=== PATIENT | female | born 1995 | race Two or more races ===

== ENCOUNTER 2024-05-05 11:55 | Emergency (ER) | payer BC, MEDICAID, SELFPAY ==
[2024-05-05 11:55] VITALS: BMI 30.6
[2024-05-05 12:51] VITALS: BP 113/80; PULSE 92; RESP 18; TEMP 37.3; O2SAT 97; BMI 28.5
--- NOTE | 2024-05-05 13:04 | EDNOTE_ITS ---
Upper Respiratory Inf. RME/HPI General Chief Complaint: Flu Like Symptoms Stated Complaint: COUGH, CHEST PAIN, BODY ACHE, Time Seen by Provider: 05/05/24 12:28 Arrival date/time: 05/05/24 11:55 RME / HPI RME / HPI Narrative: 28-year-old female patient with no significant medical history except for asthma currently not taking any medication, came in for evaluation regarding flulike symptoms. Been having flulike symptoms for the last 5 days, described as nonproductive cough, sore throat, fever, on and off, severity moderate. Denies any shortness of breath. Patient was seen by PCP and currently taking promethazine and Z-Alex. On her third day of Z-Alex. Patient denies any other complaints Related Data Home Medications ?Medication ?Instructions ?Recorded ?Confirmed vitamins-iron fumarate 27 1 tab PO QDAY 07/02/18 02/19/21 mg iron-folic acid 0.8 mg tablet ( Vitamin) albuterol 90 mcg/actuation aerosol 2 mcg inhalation Q4HR PRN Wheezing 02/03/21 02/19/21 inhaler Previous Rx's ?Medication ?Instructions ?Recorded albuterol sulfate 90 mcg/actuation 90 mcg inhalation Q6H PRN 05/05/24 breath activated powder shortness of breath or wheezing #1 inhaler,sensor (Proair Digihaler) ea oseltamivir 75 mg capsule (Tamiflu) 75 mg PO BID 5 days #10 caps 05/05/24 prednisone 50 mg tablet 50 mg PO QDAY #5 tabs 05/05/24 Allergies Allergy/AdvReac Type Severity Reaction Status Date / Time No Known Allergies Allergy Verified 05/05/24 11:58 Review of Systems Review of Systems Narrative Review of Systems: Review of system reviewed and within normal limits except mentioned in HPI ED Exam Narrative Physical exam: VITAL SIGNS: Reviewed. GENERAL APPEARANCE: Alert and interactive, follows commands, no acute distress, HEAD AND FACE: Non-traumatic. ENT: PERRL, pink conjunctivitis, eyelid no trauma, Mucous membrane moist. NECK: Supple, nontender, no nuchal rigidity. CHEST: No tenderness, no crepitus, no paradoxical movement, no retractions. LUNGS: Clear, well ventilated, symmetric, no rales, no wheezing, no ronchi, no stridor, good breath sounds bilaterally. HEART: Regular rate, regular rhythm, no murmur, no gallops. ABDOMEN: Soft, positive bowel sounds, nondistended, no guarding, nontender, no rebound, no masses, RECTAL: Deferred. GENITAL: Deferred. NEUROLOGICAL: Gross motor function intact sensory function intact, Appropriate for age. MUSCULOSKELETAL: low back nontender, full range of motion. EXTREMITIES: Nontender, full range of motion. SKIN: Color pink, dry, no rash, no lacerations, no abrasions, no contusions. LYMPHATICS: Deferred. Course Quality Measures none Orders Category Date Time Status Bedside COVID-19 Antigen Test NOW Care 05/05/24 13:03 Active Bedside Influenza A&B Antigen Test NOW Care 05/05/24 13:03 Completed XR chest 2V Stat Exams 05/05/24 13:03 Ordered HCG Qualitative,Urine Stat Lab 05/05/24 14:32 Ordered UA, C/S IF [Urinalysis, C/S if Indicated] Stat Lab 05/05/24 14:32 Ordered Ibuprofen Tab [Motrin Tab] Med 05/05/24 13:03 Discontinued 800 mg PO X1 ONE Oseltamivir [Tamiflu] Med 05/05/24 14:42 Discontinued 75 mg PO X1 ONE predniSONE Med 05/05/24 13:03 Discontinued 60 mg PO X1 ONE Vital Signs Vital signs: Vital Signs Temperature 99.2 F 05/05/24 12:51 Pulse Rate 92 05/05/24 12:51 Respiratory Rate 18 05/05/24 12:51 Blood Pressure 113/80 05/05/24 12:51 Pulse Oximetry (%) 97 05/05/24 12:51 Oxygen Delivery Method Room Air 05/05/24 12:51 Upper Respiratory Infection MDM Narrative MDM Narrative:: 28-year-old female patient with no significant medical history except for asthma currently not taking any medication, came in for evaluation regarding flulike symptoms. Been having flulike symptoms for the last 5 days, described as nonproductive cough, sore throat, fever, on and off, severity moderate. Denies any shortness of breath. Patient was seen by PCP and currently taking promethazine and Z-Alex. On her third day of Z-Alex. Patient denies any other complaints Patient tested positive for influenza. The rest of the labs unremarkable. Patient chest x-ray was canceled since patient is not able to give us urine sample and x-ray will not do it until the patient is hCG negative. Patient was given prednisone and Tamiflu with significant improvement of symptoms. Patient data External records reviewed:: None Clinical information provided by:: patient Social determinants that could affect healthcare access:: none Patient has the following chronic illnesses:: History of asthma How is presenting disease/condition affected by chronic disease/condition?: exacerbated by Evaluation data The following diagnostics were reviewed and interpreted by me:: lab results Lab and/or radiology exams considered but not ordered:: None Interpretation Summary: Tested positive for influenza negative for COVID Medications / Prescriptions Medications or Prescriptions considered but not ordered:: None Medication administrations:: Medication Administration History Discontinued Medications Ibuprofen (Ibuprofen Tab 400 Mg Tablet) 800 mg PO X1 ONE Stop: 05/05/24 13:04 Last Admin: 05/05/24 14:04 Dose: 800 mg Documented By: Oseltamivir Phosphate (Oseltamivir 75 Mg Capsule) 75 mg PO X1 ONE Stop: 05/05/24 14:43 Last Admin: 05/05/24 15:47 Dose: 75 mg Documented By: Prednisone (Prednisone 20 Mg Tablet) 60 mg PO X1 ONE Stop: 05/05/24 13:04 Last Admin: 05/05/24 14:05 Dose: 60 mg Documented By: Prednisone Tamiflu and Motrin Consultations Consultation(s) initiated? (list below): No Diagnosis Upper Respiratory Differential Diagnosis: upper respiratory infection, viral infection and influenza Most likely diagnosis given after review of the tests above:: Influenza Admission Indicated Admission indicated?: not indicated Admission Request Was there a request for admission?: No Disposition Plan Disposition Plan: Discharge Discharge Attestation Discharge Attestation: The patient was given an opportunity to ask questions and understood the discharge instructions. Discharge instructions specifically effects, indications for sooner follow up or return to the emergency department, and the expected course of current diagnosis. Patient condition: Stable Discharge Plan Plan Patient Disposition: HOME (Self Care) Disposition Comment: stable Prescriptions/Referrals Prescriptions/Med Rec: New oseltamivir [Tamiflu] 75 mg capsule 75 mg PO BID 5 Days Qty: 10 0RF prednisone 50 mg tablet 50 mg PO QDAY Qty: 5 0RF Proair Digihaler 90 mcg/actuation aero powdr breath act w/sensor 90 mcg inhalation Q6H PRN (Reason: shortness of breath or wheezing) Qty: 1 0RF No Action Vitamin 27 mg iron- 0.8 mg Tablet 1 tab PO QDAY albuterol 90 mcg/actuation Aerosol 2 mcg INHALATION Q4HR PRN (Reason: Wheezing) Patient Comments: 2 puffs every 4 hours as needed for wheezing or shortness of breath Referrals: Jessica Guthrie PA-C [Primary Care Provider] - In 1 week Problem List Clinical Impression: Influenza, Shortness of breath Patient/Caregiver Discharge Instructions Education Materials: ED Influenza (Adult) Additional Instructions: Thank you for the opportunity for serving you today. You are stable for discharged . You are advised to: Follow-up with your PCP in 1 to 2 days Return to ED for worsening of symptoms Increase oral fluids Take medication as prescribed Print Language: [place] Stand Alone Forms: Maegan Award Info., Patient Portal Info Letter
[2024-05-05 14:04] VITALS: TEMP 37.6
[2024-05-05] MEDS: IBUPROFEN TAB 400 MG TABLET 800 MG PO (14:04)
[2024-05-05] MEDS: predniSONE 20 MG TABLET 60 MG PO (14:05)
[2024-05-05] MEDS: OSELTAMIVIR 75 MG CAPSULE PO (15:47)
[2024-05-05 16:36] VITALS: BP 124/77; PULSE 83; RESP 18; TEMP 37.2; O2SAT 98
== END 2024-05-05 17:14 | disposition home or self-care (01) ==
PROVIDERS: Emergency Provider Emergency Medicine; PCP Physician Assistant
DX: J11.1 Influenza due to unidentified influenza virus with other respiratory manifestations (principal); J45.909 Unspecified asthma, uncomplicated
CPT/HCPCS: 81001; 81025; 87400; 87811; 99283; J7512; A9270

== ENCOUNTER 2024-05-15 19:40 | Emergency (ER) | payer BC, MEDICAID, SELFPAY ==
[2024-05-15 19:54] VITALS: PULSE 103; RESP 19; O2SAT 99
[2024-05-15 20:24] VITALS: BP 122/82; PULSE 92; RESP 18; TEMP 36.9; O2SAT 99; BMI 29.8
--- NOTE | 2024-05-15 20:36 | EKG_ITS ---
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) Order Number: [id number] Reading MD: Yovani Eric ([facility]) Measurements Intervals [place] Rate: 82 P: 28 MO: 166 QRS: 37 QRSD: 90 T: 32 QT: 355 QTc: 415 Interpretive Statements SINUS RHYTHM WITH SINUS ARRHYTHMIA No previous ECG available for comparison /[id number]/[email or web address]/[id number]
--- NOTE | 2024-05-15 20:36 | PD.EDRME ---
Rapid Medical Screening Exam RME Arrival date/time: 05/15/24 19:40 28-year-old female past medical history of anxiety presents emergency department complaining of intermittent palpitations and chest pain. Patient reports is currently 5 weeks A1. Time Seen by Provider: 05/15/24 20:01 Vital signs: Vital Signs Temperature 98.4 F 05/15/24 20:24 Pulse Rate 92 05/15/24 20:24 Respiratory Rate 18 05/15/24 20:24 Blood Pressure 122/82 05/15/24 20:24 Pulse Oximetry (%) 99 05/15/24 20:24 Oxygen Delivery Method Room Air 05/15/24 20:24 Vital signs reviewed by provider: Yes
[2024-05-15 21:08] VITALS: PULSE 92
--- NOTE | 2024-05-15 21:10 | PC.NURSE ---
Pt to room 4 at this time; assumed care of pt.
[2024-05-15 21:20] LABS: Collection Type, Urine Clean Catch
--- NOTE | 2024-05-15 21:21 | PD.EDARRY ---
ED Arrhythmia Palp. RME/HPI General Chief Complaint: Arrhythmia/Palpitations Stated Complaint: PALPITATIONS Time Seen by Provider: 05/15/24 20:01 Source: patient Arrival date/time: 05/15/24 19:40 Mode of arrival: ambulatory Limitations: no limitations RME / HPI RME / HPI narrative: 05/15/24 19:40 28-year-old female past medical history of anxiety presents emergency department complaining of intermittent palpitations and chest pain. Patient reports is currently [address] Rodriguez?s Main ED Evaluation: 28-year-old female, 3 para 1 (), arrived via ambulance to the emergency department with complaints of a racing heart and persistent flu-like symptoms. She reports that the episode was preceded by anxiety. The patient is currently 5 weeks . She was recently evaluated at [facility], where she was diagnosed with strep throat and prescribed a Z-alex. However, she admits to incomplete adherence to the antibiotic regimen, taking the medication for only three days. Additionally, on May 05, 2024, the patient sought evaluation for flu-like symptoms at this facility and tested positive for influenza A. She was discharged with a prescription for Tamiflu 75 mg PO BID for 5 days, Prednisone 50 mg PO daily, and Proair inhaler (Q6H as needed). Related Data Home Medications ?Medication ?Instructions ?Recorded ?Confirmed vitamins-iron fumarate 27 1 tab PO QDAY 07/02/18 02/19/21 mg iron-folic acid 0.8 mg tablet ( Vitamin) albuterol 90 mcg/actuation aerosol 2 mcg inhalation Q4HR PRN Wheezing 02/03/21 02/19/21 inhaler Previous Rx's ?Medication ?Instructions ?Recorded albuterol sulfate 90 mcg/actuation 90 mcg inhalation Q6H PRN 05/05/24 breath activated powder shortness of breath or wheezing #1 inhaler,sensor (Proair Digihaler) ea prednisone 50 mg tablet 50 mg PO QDAY #5 tabs 05/05/24 Allergies Allergy/AdvReac Type Severity Reaction Status Date / Time No Known Allergies Allergy Verified 05/15/24 20:05 Review of Systems Review of Systems Systems Reviewed: All systems reviewed, normal except as documented Past Medical History Past Medical History NEUROLOGIC: Negative Neurological Disorders CARDIAC: Negative Cardiac Disorders or Congestive Heart Failure RESPIRATORY: Positive Asthma (Rescue inhaler with occasional use); Negative Chronic Obstructive Pulmonary Disease (COPD) or Smoking GASTROINTESTINAL: Positive Gastrointestinal Disorders and Obesity; Negative Hepatitis, Cirrhosis, Pancreatitis, Celiac Disease, Gall Bladder Disease, Gastrointestinal Bleed, Esophageal Varices, Carlson's Esophagus, Colitis, Ulcerative Colitis, Diverticulitis, Diverticulosis, Ulcer, Irritable Bowel, Crohn's Disease, Obstructive Bowel, Hiatal Hernia, Hemorrhoids or Gastroesophageal Reflux Disease GENITOURINARY: Negative Genitourinary Disorders or Renal Disease REPRODUCTIVE: Positive Previous Pregnancies (SAB x1 2018) MUSCULOSKELETAL: Negative Musculoskeletal Disorders ENDOCRINE: Negative Endocrine Disorders, Diabetes Mellitus Type 1 or Diabetes Mellitus Type 2 HEMATOLOGIC: Negative Blood Disorders OTHER HISTORY: Negative Hospitalization, Autoimmune Disease, Down Syndrome, Developmental Delay, Shingles, Falls, Blood Transfusions, Blood Transfusion Reaction, Anesthesia Reactions, Organ Transplant, Chemotherapy, Radiation Therapy, Hyperbaric Therapy, MRSA, VRSA, Vancomycin-Resistant Enterococci, Human Immunodeficiency Virus (HIV), Chicken Pox, Measles, Mumps, Rubella (Urdu Measles), Pertussis, Clostridium Difficile or Cancer Family History FAMILY HISTORY: Negative Family Cardiac Disorders, Family Cancer, Family Surgery or Family Anesthesia Reaction Surgical History SURGICAL: Negative Section or Organ Transplant Social History SMOKING STATUS: Never smoker SECOND HAND EXPOSURE: No ED Exam Narrative Physical exam: GENERAL: In general the patient is awake, interactive, in an emergency department gurney. HEAD/EYES/EARS/NOSE/THROAT: normo-cephalic, atraumatic, mucus membranes are moist. No cervical tenderness palpation midline. Supple neck. CARDIOVASCULAR: regular rate and regular rhythm, no murmurs, heart sounds are not distant, strong pulses in all four extremities that are equal and symmetric bilateral upper and lower extremities, normal capillary refill. CHEST/PULMONARY: normal chest rise and fall, good air movement, clear to auscultation bilaterally, normal inspiratory to expiratory ratios without evidence of respiratory distress. ABDOMEN: soft, not tender, no masses appreciated BACK: normal range of motion without pain. NEUROLOGICAL: cranio-facial features are symmetric, moves all four extremities equally without obvious limitations or weakness. EXTREMITY: no tenderness to palpation over the long bones or large joints of the bilateral upper and lower extremities, no joint swelling, no joint erythema, no signs of trauma, no unilateral leg swelling and no peripheral edema. SKIN: warm, dry, well-perfused, no jaundice, no rash, no telangiectasias or petechia. PSYCH: calm, cooperative, no evidence of psychosis or agitation General Limitations: Present no limitations Course Quality Measures none Orders Category Date Time Status Bedside Influenza A&B Antigen Test NOW Care 05/15/24 20:37 Active EKG (ED ONLY) *Do not use* NOW Care 05/15/24 20:36 Completed EKG (ED Only) Stat Exams 05/15/24 20:36 Draft B-Type Natriuretic Peptide Stat Lab 05/15/24 21:05 Received Beta HCG,Quantitative Stat Lab 05/15/24 21:05 Received CBC Stat Lab 05/15/24 21:05 Received Comprehensive Metabolic Panel Stat Lab 05/15/24 21:05 Received Drug Screen,Urine Stat Lab 05/15/24 21:09 Received Magnesium Stat Lab 05/15/24 21:05 Received Partial Thromboplastin Time Stat Lab 05/15/24 21:05 Received Prothrombin Time with INR Stat Lab 05/15/24 21:05 Received Troponin I Stat Lab 05/15/24 21:05 Received Urinalysis Stat Lab 05/15/24 21:09 Received Vital Signs Vital signs: Vital Signs Temperature 98.4 F 05/15/24 20:24 Pulse Rate 92 05/15/24 20:24 Respiratory Rate 18 05/15/24 20:24 Blood Pressure 122/82 05/15/24 20:24 Pulse Oximetry (%) 99 05/15/24 20:24 Oxygen Delivery Method Room Air 05/15/24 20:24 Procedures -ED EKG Interpretation #1: Additional EKG comment: I personally interpreted the EKG taken on 05/15/24 at 20:47 which showed normal sinus rhythm (NSR) with a heart rate of 82 bpm, normal axis, normal intervals, QTc of 415 ms, and no evidence of STEMI. Arrhythmia/Palpitations MDM Narrative MDM Narrative:: 28-year-old female with history anxiety and recent positive test presenting with palpitations for the last few days. Of note the patient was recently treated with initial Z-Alex but it turns out she ended up having influenza A when she was recently seen in the emergency department. While emergency department the patient has an initial heart rate of 92 which improved to 77. Otherwise on physical exam the patient does not have murmur and otherwise has a regular rhythm. Patient has no acute abdomen and no CVA tenderness bilaterally. EKG reviewed which shows no ST elevations or depressions or any blocks. White count is mildly elevated at 12 but otherwise no bandemia. Potassium is slightly decreased at 3.1 which is going to be replaced. Patient is not complaining of any dysuria or abdominal pain. She does have squamous cells in her urine and I do not suspect UTI however she does have asymptomatic bacteriuria. I will offer her treatment for a symptomatic dysuria versus being followed up in 48 hours for urine culture results. Scribe Attestation: I, Jesus Lemus, am scribing for and in the presence of Dr. Rodriguez. Provider Notation: Although this document has been carefully reviewed, there may still be some phonetic and other typographical errors. These errors are purely grammatical due to imperfections in the software program and should not be construed in any way to compromise the substance of the patient's medical care during this visit. Patient data External records reviewed:: [facility] previous records and EMS form Clinical information provided by:: patient and EMS Social determinants that could affect healthcare access:: none Patient has the following chronic illnesses:: see PMH How is presenting disease/condition affected by chronic disease/condition?: uneffected by Evaluation data The following diagnostics were reviewed and interpreted by me:: lab results and EKG tracing(s) Lab and/or radiology exams considered but not ordered:: n/a Interpretation Summary: as above Medications / Prescriptions Medications or Prescriptions considered but not ordered:: n/a Medication administrations:: as above, if any Consultations Consultation(s) initiated? (list below): No Diagnosis Differential diagnosis arrhythmia/palpitations: other (see narrative) Most likely diagnosis given after review of the tests above:: see clinical impression Admission Indicated Admission indicated?: not indicated Admission Request Was there a request for admission?: No Disposition Plan Disposition Plan: Discharge Discharge Attestation Discharge Attestation: The patient and all family members were given an opportunity to ask questions and understood the discharge instructions. Discharge instructions specifically effects, indications for sooner follow up or return to the emergency department, and the expected course of current diagnosis. Patient condition: Stable Discharge Plan Plan Patient Disposition: HOME (Self Care) Patient condition on transfer: Stable Prescriptions/Referrals Prescriptions/Med Rec: No Action Vitamin 27 mg iron- 0.8 mg Tablet 1 tab PO QDAY albuterol 90 mcg/actuation Aerosol 2 mcg INHALATION Q4HR PRN (Reason: Wheezing) Patient Comments: 2 puffs every 4 hours as needed for wheezing or shortness of breath prednisone 50 mg tablet 50 mg PO QDAY Qty: 5 0RF Proair Digihaler 90 mcg/actuation aero powdr breath act w/sensor 90 mcg inhalation Q6H PRN (Reason: shortness of breath or wheezing) Qty: 1 0RF Referrals: Jessica Guthrie PA-C [Primary Care Provider] - In 1 week Problem List Clinical Impression: Acute hypokalemia, Palpitations, Asymptomatic bacteriuria Patient/Caregiver Discharge Instructions Education Materials: ED Palpitations Additional Instructions: Even though you have been discharged from the Emergency Department, there are several things that you should do to ensure that you receive proper care: 1. DO READ your discharge instructions as these contain important information concerning your medical care. 2. If medication has been prescribed for your condition, fill the prescription as soon as possible and follow the directions on the medication. 3. RETURN AT ONCE TO THE EMERGENCY DEPARTMENT if you have any problems or concerns. These include but are not limited to fever, worsening pain(belly, chest, head, etc?), worsening shortness of breath, uncontrollable bleeding, inability to tolerate food and water, or any condition that makes you question your well-being. Also, if your symptoms do not improve in the next 12-24 hours, return to the ER or seek medical care immediately. 4. Be sure to follow up with your regular physician or specialist as instructed at discharge as this is the best way to ensure that you receive the very best of care. If you do not have a primary care physician, please contact a physician group and make an appointment. 5. Today your urine shows that you have bacteria. We will need to have you follow-up in 48 hours for urine culture results as opposed to treating you with antibiotics. We would like to thank you for coming today and our hope is that we served you and your family well during your stay Print Language: Mosoth[place] Stand Alone Forms: Maegan Award Info., Patient Portal Info Letter
[2024-05-15 21:26] LABS: Basophils # (Auto) 0.1 Thou/mm3 (0.0-0.2); Basophils % (Auto) 1 % (0-2.5); Eosinophils # (Auto) 0.1 Thou/mm3 (0.0-0.5); Eosinophils % (Auto) 1 % (0-10); Hematocrit 38.3 % (36.0-46.0); Hemoglobin 13.5 g/dL (12.0-16.0); Immature Granulocytes % (Auto) 0 % (0-0); Immature Granulocytes Auto 0.05 Thou/mm3 (0.00-0.00); Lymphocytes # (Auto) 3.5 Thou/mm3 (1.0-4.8); Lymphocytes % (Auto) 27 % (10-50); Mean Corpuscular HGB Conc 35.2 g/dl (31.0-37.0); Mean Corpuscular Hemoglobin 30.9 pg (25.0-35.0); Mean Corpuscular Volume 88 fL (80-100); Monocytes # (Auto) 1.1 Thou/mm3 (0.0-0.8); Monocytes % (Auto) 9 % (0-12); Neutrophils % (Auto) 62 % (37-80); Nucleated Red Blood Cell % 0 /100 WBC (0); Platelet Count 305 Thou/mm3 (140-440); RDW Standard Deviation 40.4 fL (36.4-46.3); Red Blood Count 4.37 Miln/mm3 (4.00-5.20); White Blood Count 12.8 Thou/mm3 (3.6-11.0)
[2024-05-15 21:31] LABS: Bacteria,Urine 1+; Bilirubin,Urine Negative (Negative); Blood,Urine Negative (Negative); Budding Yeast,Urine Present; Clarity,Urine Turbid (Clear/Hazy); Color,Urine Lt-Yellow (Lt Yel-Yel); Glucose, Urine Negative (Negative); Ketones,Urine Negative (Negative); Leukocyte Esterase,Urine Positive (Negative); Nitrite,Urine Negative (Negative); Protein,Urine Negative (Neg - Trace); RBC,Urine 12 /hpf (0-3); Specific Gravity,Urine 1.008 (1.001-1.035); Squamous Epithelial Cell,Urine 13 /hpf (0-5); Urobilinogen,Urine Negative mg/dL (0.0-1.0); WBC,Urine 27 /hpf (0-5)
[2024-05-15 21:45] LABS: Partial Thromboplastin Time 25.5 Seconds (22.0-36.0); Prothrombin Time 10.9 Seconds (9.0-12.2)
--- NOTE | 2024-05-15 21:45 | PC.NURSE ---
Dr. Rodriguez at the bedside at this time.
[2024-05-15 21:47] LABS: B-Type Natriuretic Peptide < 20 pg/mL (0-100)
[2024-05-15 21:48] LABS: Alanine Aminotransferase 14 U/L (10-49); Albumin, Serum 4.6 gm/dL (3.5-5.0); Albumin/Globulin Ratio 1.6 (1.2-2.2); Alkaline Phosphatase 41 U/L (46-116); Anion Gap 9 (7-16); Aspartate Amino Transferase 16 U/L (0-34); BUN/Creatinine Ratio 11 Ratio (12-20); Bilirubin,Total 0.7 mg/dL (0.3-1.2); Blood Urea Nitrogen 9 mg/dL (9-23); Carbon Dioxide 26.1 mMol/L (20.0-31.0); Chloride 106 mMol/L (98-107); Creatinine (Component) 0.8 mg/dL (0.6-1.3); Estimated Creatinine Clearance 94.8 mL/min (>60); Globulin 2.9 gm/dL (2.3-3.5); Glucose 71 mg/dL (74-106); Magnesium 1.7 mg/dL (1.6-2.6); Osmolality,Calculated 277 (275-295); Potassium 3.1 mMol/L (3.4-5.1); Sodium 141 mMol/L (136-145); Total Protein 7.5 gm/dL (5.7-8.2); Troponin I < 0.002 ng/mL (0.0-0.045); eGFR > 60 See Note
[2024-05-15 21:48] LABS: Amphetamine/Methamp Scrn,U Negative (Negative); Barbiturate Screen,Urine Negative (Negative); Benzodiazepines Screen,Urine Negative (Negative); Benzoylecgonine Screen, Ur Negative (Negative); Fentanyl Screen,Urine Negative (Negative); Opiate Screen,Urine Negative (Negative); THC Screen,Urine Positive (Negative)
[2024-05-15 22:02] LABS: Beta HCG,Quantitative 2727 mIU/mL (<5.0)
[2024-05-15 22:34] VITALS: BP 101/52; PULSE 77; RESP 18; O2SAT 98
[2024-05-15 23:26] VITALS: BP 108/60; PULSE 83; RESP 16; O2SAT 97
== END 2024-05-15 23:26 | disposition home or self-care (01) ==
PROVIDERS: Emergency Provider Emergency Medicine; PCP Physician Assistant
DX: O26.891 Other specified pregnancy related conditions, first trimester (principal); R00.2 Palpitations; E87.6 Hypokalemia; R82.71 Bacteriuria; F41.9 Anxiety disorder, unspecified; O99.281 Endocrine, nutritional and metabolic diseases complicating pregnancy, first trimester; O99.341 Other mental disorders complicating pregnancy, first trimester; Z3A.01 Less than 8 weeks gestation of pregnancy
CPT/HCPCS: 36415; 80053; 80307; 81001; 83735; 83880; 84484; 84702; 85025; 85610; 85730; 87400; 93005; 99283

== ENCOUNTER → 2024-05-21 | Outpatient (CLI) | payer BC, MEDICAID, SELFPAY ==
--- NOTE | 2024-05-21 15:30 | XR_ITS ---
Examination: Complete OB ultrasound, less than 14 weeks, transabdominal Date and time of exam: May 21, 2024 1603 hours INDICATIONS: Diagnosis high risk Technique: Obstetrical ultrasound images less than 14 weeks performed via transabdominal imaging Findings: A normal shaped single intrauterine gestation is present in the uterus. pole 0.4 cm corresponds to 6 week 0 day gestational age Cardiac motion 77 BPM Ultrasonographic survey of visible and placental structures unremarkable. Amniotic fluid volume appears appropriate for this estimated gestational age. Right ovary 2.6 cm arterial flow Left ovary 2.8 cm arterial flow IMPRESSION: Viable intrauterine gestation 6 weeks 0 days Consider short-term follow-up to document normal cardiac activity.
== END | disposition home or self-care (01) ==
LOC: CDIM 15:34
PROVIDERS: PCP Physician Assistant; Referring Provider Obstetrics & Gynecology; Visit Provider Obstetrics & Gynecology
DX: O09.91 Supervision of high risk pregnancy, unspecified, first trimester (principal); Z3A.01 Less than 8 weeks gestation of pregnancy
CPT/HCPCS: 76801

== ENCOUNTER 2024-08-22 20:37 | Emergency (ER) | payer BC, MEDICAID, SELFPAY ==
[2024-08-22 20:37] VITALS: BMI 31.1
--- NOTE | 2024-08-22 20:45 | PD.EDURI ---
Upper Respiratory Inf. RME/HPI General Chief Complaint: Flu Like Symptoms Stated Complaint: COUGHING X 1 WEEK Time Seen by Provider: 08/22/24 20:46 Arrival date/time: 08/22/24 20:37 RME / HPI RME / HPI Narrative: This section includes all my notes and documentations, including HPI, PE, and ED course. Sukhwinder Parisi MD HPI: 28yo female with a history of asthma presents to the ED for a chief complaint of flu-like symptoms x 2 weeks. With productive cough, generalized body aches, and shortness of breath. Patient states she was diagnosed with Strep at her PCP's office last week and has been taking amoxicillin. Not getting better. Was not swabbed for strep. No other complaints reported. ROS: All negative except as documented in HPI. Physical Exam: General: Alert and oriented. Actively coughing. Eyes: Conjunctivae and lids clear. ENT: Congestion noted. Pharynx normal. TM normal bilaterally. Neck: Supple. Heart: RRR. Lungs: In no respiratory distress. Moderately decreased air movement with wheezing and rales. Abdomen: Soft and nontender. Back: No CVA tenderness. Skin: Warm and dry. Neuro: Alert and oriented X 3. I reviewed all diagnostic test results. My interpretation of the chest x-ray is infiltrates. COVID/influenza negative. FHT 156 bpm. At this point, diagnoses include pneumonia. Treatment here included Albuterol, Benadryl, Prednisone, and Azithromycin. Significant improvement noted. Recommend outpatient treatment. Based on my best medical judgment, made decision no further evaluation or treatment indicated at this time. Patient understands and agrees to the discharge instructions customized and printed, see below. Discharge instructions from Dr. Parisi: --No physical exertion for 3 days to help rest the lungs. ?No smoking or exposure to smoking or pets or dust or cold or humidity. --Zithromax to kill the germs causing the pneumonia. --Prednisone to help decrease the swelling in the airways. --Albuterol 2 puffs every 4-6 hours today and tomorrow to help keep the airways open. Then as needed for cough or shortness of breath. --See a private doctor next week if not completely better. --Seek immediate medical care with worsening or with any concerns. Sukhwinder Parisi MD Related Data Home Medications ?Medication ?Instructions ?Recorded ?Confirmed vitamins-iron fumarate 27 1 tab PO QDAY 07/02/18 02/19/21 mg iron-folic acid 0.8 mg tablet ( Vitamin) albuterol 90 mcg/actuation aerosol 2 mcg inhalation Q4HR PRN Wheezing 02/03/21 02/19/21 inhaler Previous Rx's ?Medication ?Instructions ?Recorded albuterol sulfate 90 mcg/actuation 90 mcg inhalation Q6H PRN 05/05/24 breath activated powder shortness of breath or wheezing #1 inhaler,sensor (Proair Digihaler) ea prednisone 50 mg tablet 50 mg PO QDAY #5 tabs 05/05/24 albuterol sulfate 90 mcg/actuation 2 puff inhalation Q6H PRN 08/22/24 aerosol inhaler shortness of breath or wheezing #8.5 grams azithromycin 500 mg tablet 500 mg PO QDAY 3 days #3 tabs 08/22/24 (Zithromax TRI-FANNY) prednisone 50 mg tablet 50 mg PO QDAY #3 tabs 08/22/24 Allergies Allergy/AdvReac Type Severity Reaction Status Date / Time No Known Allergies Allergy Verified 05/15/24 20:05 Review of Systems Review of Systems Systems Reviewed: All systems reviewed, normal except as documented Past Medical History Past Medical History NEUROLOGIC: Negative Neurological Disorders CARDIAC: Negative Cardiac Disorders or Congestive Heart Failure RESPIRATORY: Positive Asthma (Rescue inhaler with occasional use); Negative Chronic Obstructive Pulmonary Disease (COPD) or Smoking GASTROINTESTINAL: Positive Gastrointestinal Disorders and Obesity; Negative Hepatitis, Cirrhosis, Pancreatitis, Celiac Disease, Gall Bladder Disease, Gastrointestinal Bleed, Esophageal Varices, Carlson's Esophagus, Colitis, Ulcerative Colitis, Diverticulitis, Diverticulosis, Ulcer, Irritable Bowel, Crohn's Disease, Obstructive Bowel, Hiatal Hernia, Hemorrhoids or Gastroesophageal Reflux Disease GENITOURINARY: Negative Genitourinary Disorders or Renal Disease REPRODUCTIVE: Positive Previous Pregnancies (2017) MUSCULOSKELETAL: Negative Musculoskeletal Disorders ENDOCRINE: Negative Endocrine Disorders, Diabetes Mellitus Type 1 or Diabetes Mellitus Type 2 HEMATOLOGIC: Negative Blood Disorders OTHER HISTORY: Negative Hospitalization, Autoimmune Disease, Down Syndrome, Developmental Delay, Shingles, Falls, Blood Transfusions, Blood Transfusion Reaction, Anesthesia Reactions, Organ Transplant, Chemotherapy, Radiation Therapy, Hyperbaric Therapy, MRSA, VRSA, Vancomycin-Resistant Enterococci, Human Immunodeficiency Virus (HIV), Chicken Pox, Measles, Mumps, Rubella (Czech Measles), Pertussis, Clostridium Difficile or Cancer Family History FAMILY HISTORY: Negative Family Cardiac Disorders, Family Cancer, Family Surgery or Family Anesthesia Reaction Surgical History SURGICAL: Negative Section or Organ Transplant Social History SMOKING STATUS: Never smoker SECOND HAND EXPOSURE: No ED Exam Narrative Physical exam: As noted in HPI. Course Course Course Narrative: CXR is ordered for determining the etiology of cough. Quality Measures none Orders Category Date Time Status Bedside COVID-19 Antigen Test NOW Care 08/22/24 20:49 Active Bedside Influenza A&B Antigen Test NOW Care 08/22/24 20:49 Completed heart tone auscultation X1 Care 08/22/24 20:49 Active XR chest 1V portable Stat Exams 08/22/24 20:49 Completed ALBUTEROL RT 3ml [Proventil Rt 3ml] Med 08/22/24 20:49 Discontinued 2.5 mg INH X1 ONE Azithromycin Po [Zithromax PO] Med 08/22/24 21:37 Discontinued 500 mg PO X1 ONE DiphenhydrAMINE [Benadryl] Med 08/22/24 20:49 Discontinued 12.5 mg PO X1 ONE predniSONE Med 08/22/24 20:49 Discontinued 60 mg PO X1 ONE Vital Signs Vital signs: Vital Signs Temperature 99.6 F 08/22/24 20:46 Pulse Rate 114 H 08/22/24 20:46 Respiratory Rate 20 08/22/24 20:46 Blood Pressure 119/82 08/22/24 20:46 Pulse Oximetry (%) 95 08/22/24 20:46 Oxygen Delivery Method Room Air 08/22/24 20:46 Upper Respiratory Infection MDM Narrative MDM Narrative:: Scribe Attestation: 08/22/24 Shira Joshi am scribing for and in the presence of Dr. Parisi. 28yo female with a history of asthma presents to the ED for a chief complaint of flu-like symptoms x 2 weeks. Patient states she was diagnosed with Strep at her PCP's office last week and has been taking amoxicillin. Patient states she has since developed a persistent dry cough, generalized body aches, and shortness of breath. Patient denies any fever, chills or any other associated symptoms. Of note, patient states she is 19 weeks . No other complaints reported. Patient data External records reviewed:: [facility] previous records (Per chart review, patient was seen here on 05/15/24 for acute hypokalemia.) Clinical information provided by:: patient Social determinants that could affect healthcare access:: none Patient has the following chronic illnesses:: asthma How is presenting disease/condition affected by chronic disease/condition?: uneffected by Evaluation data The following diagnostics were reviewed and interpreted by me:: lab results and radiology exam(s) Lab and/or radiology exams considered but not ordered:: none Interpretation Summary: I reviewed all diagnostic test results. My interpretation of the chest x-ray is infiltrates. COVID/influenza negative. FHT 156 bpm. Medications / Prescriptions Medications or Prescriptions considered but not ordered:: none Medication administrations:: Medication Administration History Discontinued Medications Albuterol (Albuterol Rt 2.5 Mg/3 Ml Nebu) 2.5 mg INH X1 ONE Stop: 08/22/24 20:50 Last Admin: 08/22/24 22:10 Dose: 2.5 mg Documented By: Azithromycin (Azithromycin 250 Mg Tablet) 500 mg PO X1 ONE Stop: 08/22/24 21:38 Last Admin: 08/22/24 21:54 Dose: 500 mg Documented By: FRED Diphenhydramine HCl (Diphenhydramine Elix 25 Mg/10 Ml Udc) 12.5 mg PO X1 ONE Stop: 08/22/24 20:50 Last Admin: 08/22/24 21:26 Dose: 12.5 mg Documented By: FRED Prednisone (Prednisone 20 Mg Tablet) 60 mg PO X1 ONE Stop: 08/22/24 20:50 Last Admin: 08/22/24 21:26 Dose: 60 mg Documented By: AC Albuterol, Benadryl, Prednisone, Azithromycin Consultations Consultation(s) initiated? (list below): No Diagnosis Upper Respiratory Differential Diagnosis: upper respiratory infection, croup, otitis media, sinusitis, viral infection, bronchitis, influenza and other (pneumonia) Most likely diagnosis given after review of the tests above:: Pneumonia Admission Indicated Admission indicated?: not indicated Explain why admission is indicated or not indicated:: With significant improvement, there was no indication for admission. Admission Request Was there a request for admission?: No Disposition Plan Disposition Plan: Discharge Discharge Attestation Discharge Attestation: The patient and all family members were given an opportunity to ask questions and understood the discharge instructions. Discharge instructions specifically effects, indications for sooner follow up or return to the emergency department, and the expected course of current diagnosis. Patient condition: Stable Discharge Plan Plan Patient Disposition: HOME (Self Care) Prescriptions/Referrals Prescriptions/Med Rec: New prednisone 50 mg tablet 50 mg PO QDAY Qty: 3 0RF albuterol sulfate 90 mcg/actuation HFA aerosol inhaler 2 puff inhalation Q6H PRN (Reason: shortness of breath or wheezing) Qty: 8.5 0RF azithromycin [Zithromax TRI-FANNY] 500 mg tablet 500 mg PO QDAY 3 Days Qty: 3 0RF No Action Vitamin 27 mg iron- 0.8 mg Tablet 1 tab PO QDAY albuterol 90 mcg/actuation Aerosol 2 mcg INHALATION Q4HR PRN (Reason: Wheezing) Patient Comments: 2 puffs every 4 hours as needed for wheezing or shortness of breath prednisone 50 mg tablet 50 mg PO QDAY Qty: 5 0RF Proair Digihaler 90 mcg/actuation aero powdr breath act w/sensor 90 mcg inhalation Q6H PRN (Reason: shortness of breath or wheezing) Qty: 1 0RF Referrals: Jessica Guthrie PA-C [Primary Care Provider] - In 1 week Problem List Clinical Impression: Pneumonia Patient/Caregiver Discharge Instructions Discharge Activity: activity as tolerated Education Materials: ED Pneumonia (Adult) Additional Instructions: Discharge instructions from Dr. Parisi: --No physical exertion for 3 days to help rest the lungs. ?No smoking or exposure to smoking or pets or dust or cold or humidity. --Zithromax to kill the germs causing the pneumonia. --Prednisone to help decrease the swelling in the airways. --Albuterol 2 puffs every 4-6 hours today and tomorrow to help keep the airways open. Then as needed for cough or shortness of breath. --See a private doctor next week if not completely better. --Seek immediate medical care with worsening or with any concerns. Print Language: Bhutanese Stand Alone Forms: Maegan Award Info., Patient Portal Info Letter
[2024-08-22 20:46] VITALS: BP 119/82; PULSE 114; RESP 20; TEMP 37.6; O2SAT 95
--- NOTE | 2024-08-22 20:49 | XR_ITS ---
Examination: Upright PA chest single view Technique whereby PA chest single view Date and time: 11/22/2024 1012 hours INDICATIONS: Coughing body aches shortness of breath beginning one week ago. FINDINGS: Suspicious for early left base pneumonia Normal heart size The right lung clear IMPRESSION: Suspicious for left base pneumonia
[2024-08-22] MEDS: DiphenhydrAMINE ELIX 25 MG/10 ML UDC 12.5 MG PO (21:26)
[2024-08-22] MEDS: predniSONE 20 MG TABLET 60 MG PO (21:26)
[2024-08-22] MEDS: AZITHROMYCIN 250 MG TABLET 500 MG PO (21:54)
[2024-08-22 22:10] VITALS: PULSE 83
[2024-08-22] MEDS: ALBUTEROL RT 2.5 MG/3 ML NEBU INH (22:10)
[2024-08-22 22:13] VITALS: PULSE 80; RESP 18; O2SAT 100
== END 2024-08-22 22:24 | disposition home or self-care (01) ==
PROVIDERS: Emergency Provider Emergency Medicine; PCP Physician Assistant
DX: J18.9 Pneumonia, unspecified organism (principal); J45.909 Unspecified asthma, uncomplicated
CPT/HCPCS: 71045; 87400; 87811; 94640; 99283; J7512; A9270

== ENCOUNTER 2024-10-03 14:39 | Emergency (ER) | payer BC, MEDICAID, SELFPAY ==
[2024-10-03 14:41] VITALS: PULSE 122; RESP 20; O2SAT 98
[2024-10-03 15:24] VITALS: BP 108/69; PULSE 108; RESP 18; TEMP 37.4; O2SAT 97; BMI 32.5
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
--- NOTE | 2024-10-03 15:53 | XR_ITS ---
Examination: Complete OB ultrasound greater than 14 weeks Date and time of exam: October 03, 2024 1659 hours INDICATIONS: Injury to the pelvis today, pelvic pain Findings: Viable intrauterine single fetus with single amniotic sac presentation cephalic Cardiac motion 152 BPM Placenta posterior grade 1 Umbilical cord insertion 3 vessel seen Amniotic fluid index adequate spine maternal left Cervix 3.7 cm Right ovary obscured by bowel gas Left ovary 2.8 cm arterial flow. Composite estimated gestational age based on BPD, head circumference, abdominal circumference, femur length is 24 weeks 5 days Estimated weight 1752 g. Survey of intracranial anatomy, spinal anatomy, abdominal anatomy, four-chamber heart performed with no abnormalities identified. Impression: Viable intrauterine gestation cephalic presentation Placenta posterior grade 1 no abruption.
[2024-10-03 16:19] LABS: Basophils % (Auto) 0 % (0-2.5); Eosinophils % (Auto) 0 % (0-10); Hematocrit 31.6 % (36.0-46.0); Hemoglobin 11.6 g/dL (12.0-16.0); Immature Granulocytes % (Auto) 0 % (0-0); Immature Granulocytes Auto 0.06 Thou/mm3 (0.00-0.00); Lymphocytes # (Auto) 1.4 Thou/mm3 (1.0-4.8); Lymphocytes % (Auto) 10 % (10-50); Mean Corpuscular HGB Conc 36.7 g/dl (31.0-37.0); Mean Corpuscular Hemoglobin 31.7 pg (25.0-35.0); Mean Corpuscular Volume 86 fL (80-100); Monocytes # (Auto) 0.9 Thou/mm3 (0.0-0.8); Monocytes % (Auto) 7 % (0-12); Neutrophils # (Auto) 11.1 Thou/mm3 (1.8-7.7); Neutrophils % (Auto) 82 % (37-80); Nucleated Red Blood Cell % 0 /100 WBC (0); Platelet Count 265 Thou/mm3 (140-440); RDW Standard Deviation 41.1 fL (36.4-46.3); Red Blood Count 3.66 Miln/mm3 (4.00-5.20); White Blood Count 13.5 Thou/mm3 (3.6-11.0)
[2024-10-03 16:21] LABS: Collection Type, Urine Clean Catch
[2024-10-03 16:31] LABS: Bacteria,Urine Rare; Bilirubin,Urine Negative (Negative); Blood,Urine Negative (Negative); Clarity,Urine Clear (Clear/Hazy); Color,Urine Colorless (Lt Yel-Yel); Glucose, Urine Negative (Negative); Ketones,Urine Negative (Negative); Leukocyte Esterase,Urine Positive (Negative); Nitrite,Urine Negative (Negative); PH,Urine 6.5 (5.0-7.0); Protein,Urine Trace (Neg - Trace); RBC,Urine 5 /hpf (0-3); Specific Gravity,Urine 1.006 (1.001-1.035); Squamous Epithelial Cell,Urine 5 /hpf (0-5); Urobilinogen,Urine Negative mg/dL (0.0-1.0); WBC,Urine 2 /hpf (0-5)
[2024-10-03 16:39] LABS: Alanine Aminotransferase 12 U/L (10-49); Albumin/Globulin Ratio 1.7 (1.2-2.2); Alkaline Phosphatase 51 U/L (46-116); Anion Gap 8 (7-16); Aspartate Amino Transferase 13 U/L (0-34); BUN/Creatinine Ratio 8 Ratio (12-20); Bilirubin,Total 0.4 mg/dL (0.3-1.2); Blood Urea Nitrogen < 5 mg/dL (9-23); Calcium 9.3 mg/dL (8.3-10.6); Calcium (Corrected) 9.3 mg/dL (8.5-10.1); Carbon Dioxide 22.8 mMol/L (20.0-31.0); Chloride 108 mMol/L (98-107); Creatinine (Component) 0.6 mg/dL (0.6-1.3); Globulin 2.3 gm/dL (2.3-3.5); Glucose 110 mg/dL (74-106); Osmolality,Calculated 275 (275-295); Potassium 3.7 mMol/L (3.4-5.1); Sodium 139 mMol/L (136-145); Total Protein 6.3 gm/dL (5.7-8.2); eGFR > 60 See Note
--- NOTE | 2024-10-03 20:06 | PC.NURSE ---
NAx1@2006 for discharge
--- NOTE | 2024-10-03 20:20 | PC.NURSE ---
NAx2 2020 for discharge
--- NOTE | 2024-10-03 20:29 | PC.NURSE ---
NAx3 @2028 for discharge.
== END 2024-10-03 20:31 | disposition home or self-care (01) ==
PROVIDERS: Physician Assistant; Emergency Provider Emergency Medicine; PCP Physician Assistant
DX: O9A.312 Physical abuse complicating pregnancy, second trimester (principal); S00.83XA Contusion of other part of head, initial encounter; S39.93XA Unspecified injury of pelvis, initial encounter; Y04.0XXA Assault by unarmed brawl or fight, initial encounter; Y07.411 Sister, perpetrator of maltreatment and neglect; Z3A.24 24 weeks gestation of pregnancy
CPT/HCPCS: 36415; 76805; 80053; 81001; 85025; 99284

== ENCOUNTER 2024-11-06 10:16 | Outpatient (CLI) | payer BC, MEDICAID, SELFPAY ==
[2024-11-06 10:16] VITALS: BMI 33.7
[2024-11-06 10:23] VITALS: BP 108/60; PULSE 86
[2024-11-06 11:03] VITALS: BP 108/60; PULSE 90; RESP 16; RESP 98; TEMP 37.1
== END 2024-11-06 11:15 | disposition home or self-care (01) ==
LOC: S4S1 10:17 → S4SX 10:18
PROVIDERS: Referring Provider Obstetrics & Gynecology; Visit Provider Obstetrics & Gynecology
DX: Z34.83 Encounter for supervision of other normal pregnancy, third trimester (principal); Z36.9 Encounter for antenatal screening, unspecified; Z3A.30 30 weeks gestation of pregnancy
CPT/HCPCS: 59025

== ENCOUNTER 2024-12-07 08:55 | Observation (INO) | payer BC, MEDICAID, SELFPAY ==
[2024-12-07] VITALS (20 sets, daily range): BP systolic 104; BP diastolic 66; PULSE 79–100; RESP 17–98; TEMP 37.1; O2SAT 93–100; BMI 34.4
--- NOTE | 2024-12-07 09:24 | XR_ITS ---
Examination: age Limited TECHNIQUE: Grayscale sonographic images pelvis Date and time: December 07, 2024 1029 hours INDICATIONS: Leaking amniotic fluid today FINDINGS: Viable intrauterine gestation Estimated weight 2358 g Amniotic fluid index 11.7 cm Cardiac motion 143 BPM IMPRESSION: Viable intrauterine gestation Estimated weight 2358 g
[2024-12-07 09:31] LABS: ROM Kit Exp Date# 011828; ROM Kit Lot # 58104371; Swb Mxed in Solvent 1 min? Yes
[2024-12-07 09:32] LABS: ROM Swab Mixed By: HL; Rupture of Fetal Membranes Negative (Negative)
[2024-12-07 09:48] LABS: Collection Type, Urine Clean Catch
[2024-12-07 10:15] LABS: Bacteria,Urine 1+; Bilirubin,Urine Negative (Negative); Blood,Urine Negative (Negative); Budding Yeast,Urine Present; Color,Urine Lt-Yellow (Lt Yel-Yel); Glucose, Urine Negative (Negative); Ketones,Urine Negative (Negative); Leukocyte Esterase,Urine Positive (Negative); Nitrite,Urine Negative (Negative); PH,Urine 7.0 (5.0-7.0); Protein,Urine Negative (Neg - Trace); RBC,Urine 7 /hpf (0-3); Specific Gravity,Urine 1.008 (1.001-1.035); Squamous Epithelial Cell,Urine 17 /hpf (0-5); Urobilinogen,Urine Negative mg/dL (0.0-1.0); WBC,Urine 5 /hpf (0-5)
[2024-12-07 10:17] LABS: Clarity,Urine Hazy (Clear/Hazy)
[2024-12-07 10:18] LABS: FFN Specimen Descripton Clr Colrless Aqueous; Fetal Fibronectin Negative (Negative)
[2024-12-07] MEDS: BETAMET ACET/BETAMET NA PH (Celestone) 6 MG/ML VIAL 12 MG IM (11:42)
== END 2024-12-07 11:57 | disposition home or self-care (01) ==
PROVIDERS: Admitting Provider Specialist; PCP Physician Assistant; Visit Provider Specialist
DX: Z34.83 Encounter for supervision of other normal pregnancy, third trimester (principal); Z3A.34 34 weeks gestation of pregnancy
CPT/HCPCS: 59025; 59899; 76815; 81001; 82731; 84112; 96372; J0702

== ENCOUNTER 2024-12-08 11:52 | Outpatient (CLI) | payer BC, MEDICAID, SELFPAY ==
[2024-12-08 11:55] VITALS: BP 106/59; PULSE 91; RESP 16; RESP 98; TEMP 37.1
[2024-12-08 12:16] VITALS: BMI 34.3
[2024-12-08] MEDS: BETAMET ACET/BETAMET NA PH (Celestone) 6 MG/ML VIAL 12 MG IM (12:26)
== END 2024-12-08 12:50 | disposition home or self-care (01) ==
LOC: S4S1 11:57 → S4SX 11:57
PROVIDERS: Referring Provider Specialist; Visit Provider Specialist
DX: O47.03 False labor before 37 completed weeks of gestation, third trimester (principal); Z3A.34 34 weeks gestation of pregnancy
CPT/HCPCS: 59025; 96372; J0702

== ENCOUNTER 2024-12-29 14:51 | Observation (INO) | payer BC, MEDICAID, SELFPAY ==
[2024-12-29 15:00] VITALS: BP 110/69; PULSE 78; RESP 18; RESP 99; TEMP 36.7; BMI 35.5
[2024-12-29 15:04] VITALS: BP 110/69; PULSE 78
[2024-12-29 16:21] LABS: ROM Kit Exp Date# 01/1/28; ROM Kit Lot # 58104371; ROM Swab Mixed By: SAUCT; Rupture of Fetal Membranes Negative (Negative); Swb Mxed in Solvent 1 min? Yes
== END 2024-12-29 16:30 | disposition home or self-care (01) ==
PROVIDERS: Admitting Provider Obstetrics & Gynecology; Visit Provider Obstetrics & Gynecology
DX: O47.1 False labor at or after 37 completed weeks of gestation (principal); Z3A.37 37 weeks gestation of pregnancy
CPT/HCPCS: 59025; 59899; 84112

== ENCOUNTER 2025-01-16 20:15 | Inpatient (IN) | payer BC, MEDICAID, SELFPAY ==
[2025-01-16 20:18] VITALS: BMI 35.3
[2025-01-16 20:33] VITALS: BP 106/70; PULSE 86; RESP 17; RESP 99; TEMP 37.3
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
[2025-01-16 21:12] LABS: ROM Kit Exp Date# 4/11/28; ROM Kit Lot # 58106258; ROM Swab Mixed By: PC; Rupture of Fetal Membranes Negative (Negative); Swb Mxed in Solvent 1 min? Yes
[2025-01-16 22:16] VITALS: RESP 16
[2025-01-16 22:22] VITALS: BMI 35.3
[2025-01-16 22:56] VITALS: BP 118/67; PULSE 69
--- NOTE | 2025-01-16 23:04 | PD.LDHP ---
Documentation for date of: 01/16/25 OB Labor/Induct. HPI History of Present Illness Chief complaint: Induction of labor for oligohydramnios : 3 Para: 1 Term pregnancies: 1 pregnancies: 0 Living children: 0 History of Abortions: Spontaneous and Elective: 1 History of Vaginal deliveries: 0 History of sections: No History of : No LORRIE: 01/14/25 Gestational Age (weeks): 40 Gestational Age (days): 2 History of present illness: Patient is a 29-year-old -0-1-1 history of vaginal delivery 4 years ago. Patient apparently presented with a hemoglobin of 7 and had an uncomplicated vaginal delivery but got 2 units of blood since she was so anemic on presentation. care this is with Dr. Marin. labs are on the computer but no records are available at the time of presentation. Patient had presented to triage reporting possible leaking fluid tonight but her AmniSure was negative. Her cervix was closed 50% -2. As part of the workup an ultrasound was performed revealing a vertex presentation TANVIR of 3.2 as patient is past her due date with oligohydramnios she was admitted for an induction of labor. Upon discussing induction of labor with the patient and her significant other at bedside, options were given for Cytotec or Cervidil. Patient request Cervidil. This will be placed approximately 11:00 PM. Group B strep is negative History of Present Dating criteria: LMP confirmed by 2nd trimester US Adequate Care: Yes (Per patient. No records from Dr. Marin available. Labs on computer) Ultrasounds: normal mid trimester US Obstetrical complications: none Medical complications: other (History of anemia, history of blood transfusion. On notes patient is anti-Merrillan +1-16 in June 05) Labs Maternal Blood Type: A Pos (Antibody screen positive for anti-Helena in ) Labs: Positive: Rubella Titre, Negative: RPR, Hepatitis B, HIV and Group Beta Strep and Unknown: Chlamydia, Gonorrhea, Herpes Type 1 and Herpes Type 2 Past Medical History Surgical History SURGICAL: Negative Section Past Medical History Comments PMH COMMENT: Patient denies any chronic medical history including diabetes or hypertension. She does report asthma and states she uses an albuterol inhaler. Patient denies any surgical history. She has had 1 vaginal delivery 1 miscarriage in the past the vaginal delivery she was transfused 2 units of blood for severe anemia. She denies any gastric surgeries. She denies being vegan Meds Home Medications and Allergies Home Medications ?Medication ?Instructions ?Recorded ?Confirmed ?Type vitamins-iron fumarate 27 1 tab PO QDAY 07/02/18 01/16/25 History mg iron-folic acid 0.8 mg tablet ( Vitamin) albuterol 90 mcg/actuation aerosol See Rx Instructions inhalation 02/03/21 01/16/25 History inhaler Q4HR PRN Wheezing vits no.130-ferrous fum 1 tab PO QDAY 01/16/25 01/16/25 History 27 mg iron-folic acid 800 mcg tablet ( Vitamin) Allergies Allergy/AdvReac Type Severity Reaction Status Date / Time No Known Allergies Allergy Verified 01/16/25 20:34 OB Exam Physical Exam Vital signs: Temp Pulse Resp BP 99.1 F 69 16 118/67 01/16/25 20:33 01/16/25 22:56 01/16/25 22:16 01/16/25 22:56 Routine Abdominal Exam Abdominal: Present soft Detailed Labor and Delivery Exam Dilation (cm): Closed Effacement (%): 50 Cervix position: mid station: -2 Consistency: medium Presentation: Vertex Membranes: intact monitor accelerations: 15x15 monitor decelerations: None terminal operations supervisor variability: Moderate (11-25) Contraction frequency (min): Irregular Tachysystole: No Contraction intensity: Mild OB Assessment & Plan Assessment and Plan (1) Supervision of high risk in third trimester: Status: Acute Assessment and plan: Admit for low TANVIR of 3.2. Cervidil induction per patient request. Group B strep negative. Patient unsure if she wants epidural at this time. She had 1 last time. 2 IV lines if patient is anemic. Additional Plan Induction method: other (Cervidil) Plan: induction and anticipate NVD
[2025-01-16 23:13] VITALS: RESP 16; TEMP 36.9
[2025-01-16 23:38] LABS: Amphetamine/Metham Scrn,Ur OB Negative (Negative); Benzoylecgonine Screen, Ur OB Negative (Negative); Opiate Screen,Urine OB Negative (Negative); THC Screen,Urine OB Negative (Negative)
[2025-01-16 23:40] LABS: Basophils # (Auto) 0.0 Thou/mm3 (0.0-0.2); Basophils % (Auto) 0 % (0-2.5); Eosinophils # (Auto) 0.1 Thou/mm3 (0.0-0.5); Eosinophils % (Auto) 1 % (0-10); Hematocrit 31.4 % (36.0-46.0); Hemoglobin 10.2 g/dL (12.0-16.0); Immature Granulocytes Auto 0.07 Thou/mm3 (0.00-0.00); Lymphocytes # (Auto) 2.7 Thou/mm3 (1.0-4.8); Lymphocytes % (Auto) 24 % (10-50); Mean Corpuscular HGB Conc 32.5 g/dl (31.0-37.0); Mean Corpuscular Hemoglobin 26.8 pg (25.0-35.0); Mean Corpuscular Volume 83 fL (80-100); Monocytes # (Auto) 0.9 Thou/mm3 (0.0-0.8); Monocytes % (Auto) 8 % (0-12); Neutrophils # (Auto) 7.6 Thou/mm3 (1.8-7.7); Neutrophils % (Auto) 67 % (37-80); Nucleated Red Blood Cell # 0.00 Thou/mm3 (0.00-0.00); Nucleated Red Blood Cell % 0 /100 WBC (0); Platelet Count 297 Thou/mm3 (140-440); RDW Standard Deviation 45.8 fL (36.4-46.3); Red Blood Count 3.80 Miln/mm3 (4.00-5.20); White Blood Count 11.4 Thou/mm3 (3.6-11.0)
[2025-01-17] VITALS (177 sets, daily range): BP systolic 85–146; BP diastolic 49–86; PULSE 61–200; RESP 14–18; TEMP 36.7–37.2; O2SAT 87–100
[2025-01-17 00:15] LABS: Syphilis Nonreactive (Nonreactive)
[2025-01-17 09:57] LABS: Chlamydia trachomatis PCR Negative (Not Detect); Neisseria Gonorrhoeae DNA PCR Positive (Not Detect); Trichomonas Negative (Negative)
[2025-01-17] MEDS: cefTRIAXone 2 GM, LIDOCAINE 1% 20 ML 4.2 ML IM (12:44)
--- NOTE | 2025-01-17 13:43 | PD.LDPN ---
Documentation for date of: 01/17/25 OB Labor Progress Note Pain Control Pain control: tolerating well Pelvic Exam Dilation (cm): 3 Effacement (%): 60 station: -3 Amniotic membrane status: Intact Contractions Monitor mode: External Contraction frequency: 1.5-4 Contraction pattern: Coupling Contraction intensity: Mild Status status: Category l Assessment and Plan Assessment: induction ongoing Plan OB labor note: continuous present management Comments: PATIENT TESTED POSITIVE FOR GONORRHOEA AND IS A lITTLE UPSET ABOUT IT / RESULTS GIVEN TO HER IN PRIVACY tREATMENT DISCUSSED AND ADVISED AND RECEIVED 2 GRAMS OF ROCEPHIN . .
[2025-01-17] MEDS: RINGERS LACTATED 1000 ML 1,000 ML 125 ML IV ×3 (14:29→16:55)
[2025-01-17] MEDS: OXYTOCIN in NS 30 units 30 UNIT/500 ML BAG IV (17:10)
[2025-01-18] VITALS (38 sets, daily range): BP systolic 95–142; BP diastolic 58–78; PULSE 55–97; RESP 16–18; TEMP 36.7–37.3; O2SAT 84–100
[2025-01-18] MEDS: RINGERS LACTATED 1000 ML 1,000 ML 100 ML IV (00:49)
[2025-01-18] MEDS: TERBUTALINE SULF INJ 1 MG/ML VIAL 0.25 MG SC (00:59)
[2025-01-18] MEDS: FAMOTIDINE INJ 10 MG/ML VIAL 2 ML 20 MG IV (01:11)
[2025-01-18] MEDS: ceFAZolin/D5W 2 GM IV 2 GM/100 ML BAG IV (01:12)
--- NOTE | 2025-01-18 01:47 | PD.LDDELS ---
Data (Rod) Data Hx Section: No RPR: Non-reactive : 3 Term: 1 : 0 Livin Abortions: Spontaneous & Theraputic: 1 Delivery Data (Rod) Labor Data Initiation of labor: Induction Induction/Augmentation Agent: Cervidil and Pitocin Amniotic membrane rupture type: Spontaneous Delivery Data Delivered by: Afua Zhong Other staff at delivery: Patient was in OR due to decelerations and she was refusing pelvic exam and wanting a c section. In The OR she allowed a pelvic exam to remove the IFSE and was complete and station at -1 and felt pushy and was encouraged to push and she agreed to go for a vaginal delivery and delivered successfully within 10 minutes of trying Delivery Method Presentation: Vertex Anesthesia Type Anesthesia Type: Epidural Placenta Placenta delivery description: Spontaneous Placenta Disposition: Sent to Pathology Episiotomy Episiotomy description: None EBL Estimated blood loss (ml): 682 Umbilical Cord cord description: 3 Vessels Additional Procedures patient had PPH atonic and clots evacuated and bimanual massage done and iv pitocin given and also I/M Methergine and rectal cytotec bleeding is slowed CBCand Cross and match ordered uterus feels firm VSS will continue iv pitocin and monitoring for Blood loss TXA given and hemabate / lomotil ordered
[2025-01-18] MEDS: TRANEXAMIC ACID 1,000 MG IVPB 1,000 MG/100 ML BAG 200 MG IV (02:06)
[2025-01-18] MEDS: METHYLERGONOVINE INJ 0.2 MG/ML VIAL IM (02:07)
[2025-01-18] MEDS: DIPHENOXYLATE/ATROP SULF 1 TAB PO (02:24)
[2025-01-18] MEDS: CARBOPROST TROMETH INJ 250 MCG/ML VIAL IM (02:24)
[2025-01-18 02:39] LABS: Basophils # (Auto) 0.0 Thou/mm3 (0.0-0.2); Basophils % (Auto) 0 % (0-2.5); Eosinophils # (Auto) 0.0 Thou/mm3 (0.0-0.5); Eosinophils % (Auto) 0 % (0-10); Hematocrit 28.8 % (36.0-46.0); Hemoglobin 9.5 g/dL (12.0-16.0); Immature Granulocytes Auto 0.09 Thou/mm3 (0.00-0.00); Lymphocytes # (Auto) 1.9 Thou/mm3 (1.0-4.8); Lymphocytes % (Auto) 11 % (10-50); Mean Corpuscular HGB Conc 33.0 g/dl (31.0-37.0); Mean Corpuscular Hemoglobin 27.1 pg (25.0-35.0); Mean Corpuscular Volume 82 fL (80-100); Monocytes # (Auto) 1.0 Thou/mm3 (0.0-0.8); Monocytes % (Auto) 6 % (0-12); Neutrophils # (Auto) 14.5 Thou/mm3 (1.8-7.7); Neutrophils % (Auto) 83 % (37-80); Nucleated Red Blood Cell # 0.00 Thou/mm3 (0.00-0.00); Nucleated Red Blood Cell % 0 /100 WBC (0); Platelet Count 234 Thou/mm3 (140-440); RDW Standard Deviation 45.7 fL (36.4-46.3); Red Blood Count 3.50 Miln/mm3 (4.00-5.20); White Blood Count 17.5 Thou/mm3 (3.6-11.0)
[2025-01-18] MEDS: cefTRIAXone 2 GM in SODIUM CHLORIDE 0.9% (Popper) 50 ML IV (04:51)
[2025-01-18 08:10] LABS: Basophils # (Auto) 0.0 Thou/mm3 (0.0-0.2); Basophils % (Auto) 0 % (0-2.5); Eosinophils # (Auto) 0.0 Thou/mm3 (0.0-0.5); Eosinophils % (Auto) 0 % (0-10); Hematocrit 29.7 % (36.0-46.0); Hemoglobin 9.7 g/dL (12.0-16.0); Immature Granulocytes Auto 0.10 Thou/mm3 (0.00-0.00); Lymphocytes # (Auto) 1.5 Thou/mm3 (1.0-4.8); Lymphocytes % (Auto) 7 % (10-50); Mean Corpuscular HGB Conc 32.7 g/dl (31.0-37.0); Mean Corpuscular Hemoglobin 26.9 pg (25.0-35.0); Mean Corpuscular Volume 82 fL (80-100); Monocytes # (Auto) 0.7 Thou/mm3 (0.0-0.8); Monocytes % (Auto) 3 % (0-12); Neutrophils # (Auto) 17.7 Thou/mm3 (1.8-7.7); Neutrophils % (Auto) 89 % (37-80); Nucleated Red Blood Cell # 0.00 Thou/mm3 (0.00-0.00); Nucleated Red Blood Cell % 0 /100 WBC (0); Platelet Count 269 Thou/mm3 (140-440); RDW Standard Deviation 46.1 fL (36.4-46.3); Red Blood Count 3.61 Miln/mm3 (4.00-5.20); White Blood Count 19.9 Thou/mm3 (3.6-11.0)
[2025-01-18] MEDS: PRENATAL VITAMIN/FE FUM/FA TABLET 1 TAB PO (09:52)
[2025-01-19 03:55] VITALS: BP 95/89; PULSE 71; RESP 16; TEMP 36.9; O2SAT 99
[2025-01-19 07:00] VITALS: BP 104/70; PULSE 67; RESP 16; TEMP 37; O2SAT 98
[2025-01-19] MEDS: PRENATAL VITAMIN/FE FUM/FA TABLET 1 TAB PO (08:43)
--- NOTE | 2025-01-19 10:12 | PD.LDDS ---
DS: Providers Provider Date of admission: 01/16/25 22:16 Primary care physician: Physician No Primary/Family Admitting Provider: Janet Lee MD ([facility]) Attending Provider on Admission: Demetrio Kim MD Consults: 01/18/25 01:49 Referral Routine Comment: Attending Provider on DC: Harper Guerra MD Discharging Provider: Harper Guerra MD DS: Diagnosis Discharge Diagnosis (1) care and examination immediately after delivery: Status: Acute (2) hemorrhage: Status: Acute Problem List Completed Was Problem List Reviewed/Reconciled?: Yes Summary/Hosp Course Brief History: Patient is a 29-year-old -0-1-1 history of vaginal delivery 4 years ago. Patient apparently presented with a hemoglobin of 7 and had an uncomplicated vaginal delivery but got 2 units of blood since she was so anemic on presentation. care this is with Dr. Marin. labs are on the computer but no records are available at the time of presentation. Patient had presented to triage reporting possible leaking fluid tonight but her AmniSure was negative. Her cervix was closed 50% -2. As part of the workup an ultrasound was performed revealing a vertex presentation TANVIR of 3.2 as patient is past her due date with oligohydramnios she was admitted for an induction of labor. Upon discussing induction of labor with the patient and her significant other at bedside, options were given for Cytotec or Cervidil. Patient request Cervidil. This will be placed approximately 11:00 PM. Group B strep is negative. --- Alison is doing well on PPD 1 s/p complicated by PPH related to uterine atony that was treated with medications (EBL 682ml). She has had an uncomplicated course, meeting all milestones and feels ready for discharge home. She is ambulating without lightheadedness, tolerating regular diet no n/v, spontaneously voiding without issue. She has no chest pain or shortness of breath. No fevers or chills. Minimal, appropriate discomfort. Vitals normal, benign exam. Hemodynamically stable with no evidence of infection. PP Hgb 10.2 to 9.5 to 9.7. She has no sx of anemia. Rx iron and discussed to take daily with citrus for better absorption. Peripartum Data Delivery Method: Normal Vaginal Delivery Episiotomy Description: None Procedures: Procedures Operation Date: 01/18/25 01:20 Actual Procedure Side Surgeon p in OB Afua Zhong MD Status at Discharge Functional status at discharge: independent ambulation Overall status at discharge: patient is back to baseline Time Spent with Patient Time attestation: Total time spent providing and/or coordinating discharge services: Exam Vital Signs Temp Pulse Resp BP Pulse Ox O2 Del Method 98.6 F 67 16 104/70 98 Room Air 01/19/25 07:00 01/19/25 07:00 01/19/25 07:00 01/19/25 07:00 01/19/25 07:00 01/19/25 07:00 Narrative Exam General: well developed, well nourished, no acute distress, conversant Cardiac: normal heart rate Lungs: breathing without distress Abdomen: soft, post-gravid, non-tender, no rebound or guarding, Fundus firm at u-3cm. Extremities: no pain with palpation of calves, trace edema of BLE Discharge Plan Plan Patient Disposition: HOME (Self Care) Patient condition on transfer: Stable Prescriptions/Referrals Prescriptions/Med Rec: New ibuprofen 800 mg tablet 800 mg PO Q8HR PRN (Reason: Pain Scale 4-6 (Moderate) 10 Days Qty: 20 0RF docusate sodium [Colace] 100 mg capsule 100 mg PO BID Qty: 20 0RF ferrous sulfate 325 mg (65 mg iron) tablet 325 mg PO QDAY Qty: 30 0RF Continued albuterol 90 mcg/actuation Aerosol See Rx Instructions INHALATION Q4HR PRN (Reason: Wheezing) Patient Comments: 2 puffs every 4 hours as needed for wheezing or shortness of breath Rx Instructions: 90 inhaled every 4 hours PRN; Vitamin 27 mg iron- 800 mcg tablet 1 tab PO QDAY Discontinued Vitamin 27 mg iron- 0.8 mg Tablet 1 tab PO QDAY Referrals: No Primary/Family,Physician [Primary Care Provider] Patient/Caregiver Discharge Instructions Discharge Activity: activity as tolerated and other Other Discharge Activity Instructions:: vaginal rest and no heavy lifting more than 10 pounds for 6 weeks Other Discharge Diet Instructions: regular Education Materials: After a Vaginal , Breast Care After , Print Language: Portuguese Activity Restrictions/Additional Instructions: Follow up with Dr. Marin in 4 to 6 weeks for visit, call his office to schedule Stand Alone Forms: Maegan Mcclellan Info., Patient Portal Info Letter, Work/Release Restrictions Discharge Order Discharge Orders: Discharge (Routine); Ordered 01/19/25 Ordered By: Harper Guerra Planned Discharge Date 01/19/25 (2) hemorrhage Qualifiers: hemorrhage type: other immediate Qualified Code(s): O72.1 - Other immediate hemorrhage
== END 2025-01-19 12:53 | disposition home or self-care (01) | DRG 806 ==
LOC: S4SX 01-17 13:42 → S4NX 01-18 01:33
PROVIDERS: Obstetrics & Gynecology; Admitting Provider Obstetrics & Gynecology; Visit Provider Pediatrics
PROC: 10E0XZZ Delivery of Products of Conception, External Approach (ICD-10-PCS; CPT 59514; principal; 2025-01-18 01:20)
DX: O41.03X0 Oligohydramnios, third trimester, not applicable or unspecified (principal); O72.1 Other immediate postpartum hemorrhage; Z37.0 Single live birth; O98.22 Gonorrhea complicating childbirth; O48.0 Post-term pregnancy; O99.52 Diseases of the respiratory system complicating childbirth; J45.909 Unspecified asthma, uncomplicated; O76 Abnormality in fetal heart rate and rhythm complicating labor and delivery; Z3A.40 40 weeks gestation of pregnancy
CPT/HCPCS: 36415; 59025; 59409; 76815; 80307; 84112; 85025; 86780; 86850; 86870; 86900; 86901; 87491; 87591; 87661; 94762; A4217; A4314; A4649; J0689; J0696; J1100; J1885; J2210; J2371; J2405; J2590; J2795; J3010; J3105; J3490; J7050; J7120; S0191; A9270